=== PATIENT | female | born 1990 | race Caucasian/White ===

== ENCOUNTER 2018-04-17 03:31 | Emergency (ER) | payer SELFPAY ==
[2018-04-17 03:33] VITALS: BP 167/121; PULSE 88; RESP 18; TEMP 36.8; O2SAT 98; BMI 32.5
[2018-04-17 03:39] VITALS: O2SAT 99
--- NOTE | 2018-04-17 03:59 | EKG12_ITS ---
Test Reason : CP Blood Pressure : / mmHG Vent. Rate : 074 BPM Atrial Rate : 074 BPM P-R Int : 142 ms QRS Dur : 076 ms QT Int : 400 ms P-R-T Axes : 057 013 030 degrees QTc Int : 444 ms Normal sinus rhythm Low voltage QRS Borderline ECG Confirmed by KAUSHIK CALDERON MD ([id number]), managing editor MAUREEN MEADOWS ([id number] on 04/21/2018 2:16:31 PM Referred By: BB Confirmed By:KAUSHIK CALDERON MD
--- NOTE | 2018-04-17 04:01 | ED.RN ---
EKG ORDERED BECAUSE PATIENT TOLD THIS NURSE SHE WAS HAVING CHEST PAIN NOW. EKG SHOWED NORMAL SINUS RHYTHM.
--- NOTE | 2018-04-17 04:15 | CT_ITS ---
STUDY: CT ABDOMEN AND PELVIS WITHOUT CONTRAST REASON FOR EXAM: Female, 27 years old. Right upper quadrant pain radiating into back, elevated blood pressure. History of hypertension, asthma, x2, tubal ligation. RADIATION DOSAGE (If Supplied By Facility): CTDIvol = ( 14.76 ) mGy, DLP = ( 870.37 ) mGycm TECHNIQUE: Transaxial 2.5 mm images were obtained from the dome of the diaphragm to the symphysis pubis without oral contrast, and without intravenous contrast. Sagittal and coronal images were reconstructed. This examination is limited for the evaluation of gastrointestinal, solid organs and vascular structures due to the lack of intravenous and oral contrast. Individualized dose optimization techniques were used for this CT. COMPARISON: CT abdomen pelvis 07/27/2011. FINDINGS: The visualized lung bases are unremarkable. The visualized portions of the heart are within normal limits. There is decreased attenuation of the liver consistent with steatosis. Normal gallbladder and extrahepatic biliary system. Normal spleen. Normal pancreas. Normal bilateral adrenal glands. Normal right kidney. Normal left kidney. There is no obstructive uropathy, obstructive renal or ureteral calculi. Normal visualized stomach. Normal small intestine. Normal colon. There are surgical clips in the region of the appendix consistent with a prior appendectomy. Normal abdominal aorta. Normal inferior vena cava. Normal retroperitoneum. Normal urinary bladder. Normal visualized uterus. Bilateral fallopian tube clips. Normal abdominal wall. Normal osseous structures. CT/Abdomen/Pelvis without Cont IMPRESSION: There is no acute abdomen and pelvic pathology. Hepatic steatosis. Postsurgical changes as above. Electronically Signed: Whitney Sage MD at 5:08 EST , Service support ,
[2018-04-17] MEDS: Ketorolac 30 MG/ML Syringe IV (04:25)
[2018-04-17] MEDS: 0.9% Normal Saline 1,000 ML 125 ML IV (04:25)
[2018-04-17 04:26] LABS: Absolute Lymphocyte Count 2.89 X10^3/ul (0.83-4.51); Absolute Neutrophil Count 4.4 X10^3/uL (2.0-7.7); Basophil# 0.05 X10^3/uL; Basophil% 0.6 % (0-1); Eosinophil# 0.35 X10^3/uL; Eosinophils% 4.3 % (0-5); Hematocrit 39.7 % (37-47); Hemoglobin 13.4 g/dl (12.0-15.0); Lymphocyte # 2.89 X10^3/ul (4.0); Lymphocyte % 35.1 % (19-41); Mean Corp Hgb Conc 33.8 g/gl (32-36); Mean Corpuscular Volume 88.8 fL (81-99); Mean Platelet Vol. 10.7 fl (6.2-12.0); Monocyte# 0.55 X10^3/uL; Monocyte% 6.7 % (0-10); Neutrophil # 4.37 X10^3/uL (2.7-7.7); Neutrophil % 53.1 % (47-70); POSITIVE COUNT NO; POSITIVE DIFFERENTIAL NO; POSITIVE MORPHOLOGY NO; Platelet Count 192 K/mm3 (150-450); RBC Distribution Width CV 12.3 % (11.6-14.6); RBC Distribution Width SD 39.4 fl (35.1-43.9); Red Blood Count 4.47 M/mm3 (4.2-5.4); White Blood Count 8.2 K/mm3 (4.4-11.0)
[2018-04-17 04:33] LABS: Mucous, Urine 0 SEEN /hpf (<or=2+); Red Blood Cells-Urine 0 SEEN /hpf (0-5); White Blood Cells 0 SEEN /hpf (0-5)
[2018-04-17 04:38] LABS: ALB/GLOB Ratio 1.1 RATIO (0.9-2.4); AST(SGOT) 36 U/L (15-37); Alanine Aminotransfer ALT/SGPT 59 U/L (13-56); Albumin, Serum 3.5 g/dL (3.2-5.0); Alkaline Phosphatase 100 U/L (45-117); Anion Gap 10 (5-15); BUN 14 mg/dL (7-18); BUN/Creat Ratio 16.7 RATIO (10-20); Calcium,Total 8.6 mg/dL (8.5-10.1); Chloride 109 mmol/L (98-107); Creatinine, Serum 0.84 mg/dL (0.55-1.02); EST Glomerular Filtration Rate 86 mL/min (>60); Est Glom Filt Rate - Afr Amer 104 mL/min (>60); Globulin 3.3 g/dL (2.2-4.2); Glucose 99 mg/dL (74-106); Lipase 172 U/L (73-393); Potassium 4.1 mmol/L (3.5-5.1); Protein, Total 6.8 g/dL (6.4-8.2); Sodium Level 143 mmol/L (136-145)
--- NOTE | 2018-04-17 04:59 | ED.DCSUM_ITS ---
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 She gradually developed bilateral flank pain after that, was seen in the ER at [facility], she states they did no tests and told her that she had a virus. Now the flank pain and urinary symptoms are gone, the antibiotic is finished, she states that she gradually started feeling some mild dyspnea with exertion, and since yesterday she is having worsening pleuritic discomfort in her right upper quadrant. She states it is worse when she moves. If she is not moving and not breathing deeply, she really has no discomfort. She denies any nausea or colicky pain. It radiates straight through to her back. She has had a prior tubal ligation but no other abdominal surgeries. No surgeries in the past 3 or 4 months. No recent hospitalizations, long travel, immobilization, leg pain or swelling, history of DVT or PE, or exogenous female hormones. She is a smoker. Past Medical History - Allergies and Home Meds Allergies/Adverse Reactions: Allergies No Known Allergies Allergy (Verified 04/17/18 03:32) Primary Care Physician: Brandy Schmitt [Primary Care Provider] - Surgical History: - - BTL Smoking Status: Current every day smoker Review of Systems General: Denies: Chills, Fever, Sweats Eyes: Denies: Visual changes - bilaterally, Diplopia ENT: Denies: Bilateral ear pain, Rhinorrhea, Sore throat Cardiovascular: Denies: Chest pain, Palpitations Respiratory: Reports: Dyspnea. Denies: Cough, Dyspnea on exertion Gastrointestinal: Denies: Abdominal pain, Nausea, Vomiting, Diarrhea, Melena, Hematochezia Genitourinary: Denies: Dysuria, Hematuria, Frequency Musculoskeletal: Reports: Back pain. Denies: Swelling, Extremity Pain Skin: Denies: Rash, Abscess, Wounds Neurological: Denies: Headache, Weakness, Numbness Physical Exam Vital Signs/Narrative: Vital Signs Temp Pulse Resp BP Pulse Ox 04/17/18 03:33 98.3 F 88 18 167/121 H 98 Inital Vital Signs reviewed: Yes General: Well nourished, Well developed, No Acute Distress Head: Normocephalic, Atraumatic Eyes: Perrl, EOMI ENT: Moist mucous membranes, No rhinorrhea Neck: Supple, Nontender Cardiovascular: Regular rate, Regular rhythm, No murmurs. Negative for: Tachycardia Respiratory: No distress, CTA bilaterally, Chest nontender Abdomen: Soft, Nondistended, Normal bowel sounds, Tender - RUQ. Negative for: Guarding, Rebound tenderness, Harris's sign Back: Nontender, Normal Inspection. Negative for: CVA tenderness, Spinal tenderness - and no rashes Extremities: Nontender, No edema Skin: Normal color, No rash, No Trauma Neurological: Alert, Oriented x3, Cranial nerves II-XII grossly intact, Normal Strength, Normal Sensation Psychological: Normal affect, Normal Mood Diagnostic/Tx/Re-eval Impressions Abdomen/Pelvis CT 04/17/18 04:15 IMPRESSION: There is no acute abdomen and pelvic pathology. Hepatic steatosis. Postsurgical changes as above. Electronically Signed: Whitney Sage MD at 5:08 EST , Service support , 04/17/18 04:15 Abdomen/Pelvis without Cont [CT] Stat Laboratory Results 04/17/18 04/17/18 04/17/18 03:58 03:58 04:30 WBC 8.2 RBC 4.47 Hgb 13.4 Hct 39.7 MCV 88.8 MCH 30.0 MCHC 33.8 RDW 12.3 RDW Differential 39.4 Plt Count 192 MPV 10.7 Immature Gran % (Auto) 0.200 Neut % (Auto) 53.1 Lymph % (Auto) 35.1 [place] % (Auto) 6.7 Eos % (Auto) 4.3 Baso % (Auto) 0.6 Absolute Neuts (auto) 4.4 Absolute Lymphs (auto) 2.89 Total Counted Not Reportable Sodium 143 Potassium 4.1 Chloride 109 H Carbon Dioxide 24.0 Anion Gap 10 BUN 14 Creatinine 0.84 Estim Creat Clear Calc 86.10 Est GFR (MDRD) Af Amer 104 Est GFR (MDRD) Non-Af 86 BUN/Creatinine Ratio 16.7 Glucose 99 Calcium 8.6 Total Bilirubin 0.70 AST 36 ALT 59 H Alkaline Phosphatase 100 Total Protein 6.8 Albumin 3.5 Globulin 3.3 Albumin/Globulin Ratio 1.1 Lipase 172 Urine Color Urine Clarity Urine pH Ur Specific [place] Urine Protein Urine Glucose (UA) Urine Ketones Urine Occult Blood Urine Nitrite Urine Bilirubin Urine Urobilinogen Ur Leukocyte Esterase Urine RBC Urine WBC Ur Squamous Epith Cells Urine Bacteria Urine Mucus Urine Test Negative 04/17/18 04:30 WBC RBC Hgb Hct MCV MCH MCHC RDW RDW Differential Plt Count MPV Immature Gran % (Auto) Neut % (Auto) Lymph % (Auto) [place] % (Auto) Eos % (Auto) Baso % (Auto) Absolute Neuts (auto) Absolute Lymphs (auto) Total Counted Sodium Potassium Chloride Carbon Dioxide Anion Gap BUN Creatinine Estim Creat Clear Calc Est GFR (MDRD) Af Amer Est GFR (MDRD) Non-Af BUN/Creatinine Ratio Glucose Calcium Total Bilirubin AST ALT Alkaline Phosphatase Total Protein Albumin Globulin Albumin/Globulin Ratio Lipase Urine Color Yellow Urine Clarity Clear Urine pH 6.0 Ur Specific [place] 1.020 Urine Protein Negative Urine Glucose (UA) Normal Urine Ketones Negative Urine Occult Blood Negative Urine Nitrite Negative Urine Bilirubin Negative Urine Urobilinogen Normal Ur Leukocyte Esterase Negative Urine RBC 0 SEEN Urine WBC 0 SEEN Ur Squamous Epith Cells 0-5 SEEN Urine Bacteria RARE Urine Mucus 0 SEEN Urine Test - Rhythm Strip Rhythm Strip: Sinus Rhythm Rate: 80 Ectopy: None - EKG Initial EKG Interpretation: Sinus Rhythm, No Acute Injury Pattern Prior: No Prior - Medical Decision Making negative, urinalysis negative, labs are unremarkable including liver enzymes and lipase, and CT abdomen and pelvis was obtained and shows no acute abnormalities. She thinks she has had gallbladder sludge and possibly stones in the past. They were not seen on the CT and her labs are normal, and more importantly her symptoms are improved with Toradol only. She does not have acute cholecystitis, but I offered ultrasound for further evaluation of her gallbladder which is in the area of her pain. He does not offered at this time given the hour of the night, however if she was willing to wait for 2-3 hours, I would be willing to obtain it. She does not want to wait, and she would rather go home. I offered her an outpatient ultrasound that we could set up and prescribe for her, but she declined that too, saying that she would follow-up with her doctor if the pain persisted. Also in the differential diagnosis is abdominal muscle strain, and other gastrointestinal disorders that may not show up on CT. I do not think she has PE, her PERC score is 0, essentially ruling that out. I discussed all this with her, and she is comfortable with the overall plan. ED Disposition - Plan for ED Patient: Disposition: Home or Assisted Living Diagnosis: RUQ abdominal pain Instructions: ED Abdominal Pain Gallstone Poss Referrals: Brandy Schmitt [Primary Care Provider] - 3-5 Days if not improving
[2018-04-17 05:16] LABS: Color, Urine Yellow (Yellow); Glucose, Dipstick Normal (Normal); Ketone-Dipstick Negative (Negative); Leukocyte Esterase-Dipstick Negative /ul (Negative); Nitrite-Dipstick Negative (Negative); Occult Blood-Urine Negative /ul (Negative); Protein-Dipstick Negative (Negative); Urine Bilirubin Dipstick Negative (Negative); Urine Clarity Clear (Clear); Urine Urobilinogen Normal (Normal)
[2018-04-17 05:17] LABS: Internal QC Validated? YES +Cl - CLEAR BKGD; Pregnancy, Urine Negative Negative
[2018-04-17 05:26] LABS: Bacteria RARE /hpf (None Seen); Squamous Epithelial Cells - UA 0-5 SEEN /hpf (5-10)
[2018-04-17 05:30] VITALS: BP 141/97; PULSE 72; RESP 17; TEMP 36.6; O2SAT 99
[2018-04-17 05:32] VITALS: BP 141/97; PULSE 71; RESP 21; TEMP 36.3; O2SAT 97
== END 2018-04-17 05:45 | disposition home or self-care (01) ==
PROVIDERS: Emergency Provider Emergency Medicine; Family Provider Family Medicine; PCP Family Medicine
DX: R10.11 Right upper quadrant pain (principal); F17.200 Nicotine dependence, unspecified, uncomplicated
CPT/HCPCS: 74176; 80053; 81001; 81025; 83690; 85025; 93005; 96374; 99284